=== PATIENT | female | born 1970 | race Two or more races ===

== ENCOUNTER 2019-11-16 07:30 | Inpatient (IN) | payer OTHER ==
[2019-11-16] MEDS ORDERED: CARAFATE PO (08:44)
[2019-11-25] MEDS ORDERED: CARAFATE1 GM PO (08:41)
== END 2019-11-26 11:48 | disposition home or self-care (01) | DRG 743 ==
LOC: SURH 11-23 07:00 → O/R 11-23 10:00 → OB/GYN 11-23 17:14
PROVIDERS: Urology; ADMIT Obstetrics & Gynecology; ATTEND Obstetrics & Gynecology
PROC: 0TSC0ZZ Reposition Bladder Neck, Open Approach (ICD-10-PCS; 2019-11-23)
PROC: 0UT90ZZ Resection of Uterus, Open Approach (ICD-10-PCS; principal; 2019-11-23 07:00)
PROC: 0UB70ZZ Excision of Bilateral Fallopian Tubes, Open Approach (ICD-10-PCS; 2019-11-23 07:00)
DX: D25.1 Intramural leiomyoma of uterus (principal); N72 Inflammatory disease of cervix uteri; N39.3 Stress incontinence (female) (male); N70.11 Chronic salpingitis